=== PATIENT | female | born 2000 | race Caucasian/White ===

== ENCOUNTER 2024-03-07 18:58 | Emergency (ER) | payer OTHER ==
[~2024-03-07] VITALS: Ht 172.7 cm; Wt 118.2 kg
[2024-03-07 19:02] VITALS: BP 141/86; TEMP 97.2; O2SAT 100
[2024-03-07] MEDS ORDERED: SEMA1.7P SQ (19:08)
== END 2024-03-07 22:26 | disposition left against medical advice (07) ==
LOC: M ED 18:58
DX: Z53.21 Procedure and treatment not carried out due to patient leaving prior to being seen by health care provider (principal)

== ENCOUNTER → 2024-05-29 | Outpatient (CLI) | payer OTHER ==
[~2024-05-29] MED LIST: SEMA1.7P SQ
== END ==
LOC: M EKG 10:04
PROVIDERS: ATTEND Internal Medicine
DX: R00.2 Palpitations (principal)